=== PATIENT | male | born 1990 | race Caucasian/White ===

== ENCOUNTER 2017-08-22 18:09 | Emergency (ER) | payer OTHER ==
[2017-08-22 18:46] VITALS: BP 126/70
--- NOTE | 2017-08-22 18:55 | UC ---
Elbow Pain - HPI Summary HPI Summary: Pt presents with swelling to left elbow. 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 He has no pain, but today at lunch one of his co-workers noticed his elbow was swollen. He has a history of surgery to this elbow due to a healed fracture deformity in 2012. Denies fever, chills, or decreased ROM. - History of Current Complaint Chief Complaint: UCUpperExtremity Stated Complaint: LEFT ARM COMPL Time Seen by Provider: 08/22/17 18:54 Hx Obtained From: Patient Severity Initially: Mild Severity Currently: Mild Pain Intensity: 2 Pain Scale Used: 0-10 Numeric Character: Dull, Aching Aggravating Factor(s): Movement Alleviating Factor(s): Rest - Allergies/Home Medications Allergies/Adverse Reactions: Allergies Allergy/AdvReac Type Severity Reaction Status Date / Time No Known Allergies Allergy Verified 08/22/17 18:38 Home Medications: Home Medications Cholesterol Lowering Med 1 tab PO DAILY 08/22/17 [History Confirmed 08/22/17] PMH/Surg Hx/FS Hx/Imm Hx Previously Healthy: Yes Endocrine History: Dyslipidemia - Surgical History Surgical History: Yes Surgery Procedure, Year, and Place: several left arm fractures. left humerus with a "plate" - Family History Known Family History: Positive: Hypertension - Social History Occupation: Employed Full-time Lives: With Family Alcohol Use: Occasionally Alcohol Amount: weekends Substance Use Type: None Smoking Status (MU): Former Smoker Amount Used/How Often: 1/2 ppd Length of Time of Smoking/Using Tobacco: age 15 - age 25 Have You Smoked in the Last Year: Yes When Did the Patient Quit Smoking/Using Tobacco: 2017 Review of Systems Constitutional: Negative Skin: Negative Respiratory: Negative Cardiovascular: Negative Gastrointestinal: Negative Neurovascular: Negative Musculoskeletal: Edema - Left elbow Neurological: Negative Psychological: Negative All Other Systems Reviewed And Are Negative: Yes Physical Exam - Summary Physical Exam Summary: GENERAL: NAD. WDWN. No pain distress. SKIN: No rashes, sores, ulcers, masses, lesions. NECK: Supple. Nontender. No lymphadenopathy. CHEST: CTAB. No r/r/w. No accessory muscle use. Breathing comfortably and in no distress. CV: RRR. Without m/r/g. Pulses intact radial and ulnar. MSK: Mild TTP overly left elbow. FROM. Strength 5/5 including client partner strength. Significant edema at left elbow bursae approx 3.5cm. No warmth or sign of open wound. NEURO: Alert. Sensations intact hand and all fingers. PSYCH: Age appropriate behavior. Triage Information Reviewed: Yes Vital Signs: Initial Vital Signs Temp 98.2 F 08/22/17 18:41 Pulse 80 08/22/17 18:41 Resp 16 08/22/17 18:41 BP 126/70 08/22/17 18:41 Pulse Ox 96 08/22/17 18:41 Elbow Pain Course/Dx - Course Course Of Treatment: XR: IMPRESSION: POST SURGICAL CHANGE. SUSPECT OLECRANON BURSITIS. Suspect bursitis. Advised to rest, apply ice and compression, and take ibuprofen. F/u with ortho if symptoms not improved or continue to swell for possible drainage. - Differential Dx/Diagnosis Provider Diagnoses: OLECRANON BURSITIS left Discharge - Sign-Out/Discharge Documenting (check all that apply): Discharge - Discharge Plan Condition: Stable Disposition: HOME Patient Education Materials: Elbow Bursitis (ED) Referrals: Debbie Duffy [Primary Care Provider] - Ralph Lopez MD [Medical Doctor] - If Needed Additional Instructions: If you develop a fever, shortness of breath, chest pain, new or worsening symptoms - please call your PCP or go to the ED. 1) Rest, Ice, and apply the VIELKA wrap to your elbow. 2) Take ibuprofen 600-800mg every 6-8 hours to decrease inflammation 3) If your pain or swelling has not improved in 1 week, please call Orthopedics at the number below to schedule a follow up appointment. - Billing Disposition and Condition Condition: STABLE Disposition: HOME
--- NOTE | 2017-08-22 19:32 | RAD ---
INDICATION: Left elbow pain COMPARISON: None TECHNIQUE: AP, lateral, and oblique views were obtained. FINDINGS: There is evidence of prior open reduction internal fixation of a proximal ulnar fracture. There are no findings of hardware failure. There is prominent soft tissue swelling about the olecranon most consistent with bursitis. There are no additional significant bony or soft tissue findings IMPRESSION: POST SURGICAL CHANGE. SUSPECT OLECRANON BURSITIS
== END 2017-08-22 19:43 | disposition home or self-care (01) ==
LOC: UCCORT 18:09
DX: M70.22 Olecranon bursitis, left elbow (principal); E78.5 Hyperlipidemia, unspecified; Z87.891 Personal history of nicotine dependence
CPT/HCPCS: 99211; G0463

== ENCOUNTER 2018-05-20 19:09 | Emergency (ER) | payer SELFPAY | END 2018-05-20 20:04 | disposition left against medical advice (07) | LOC: UCCORT 19:09 | DX: Z03.89 Encounter for observation for other suspected diseases and conditions ruled out (principal); Z53.21 Procedure and treatment not carried out due to patient leaving prior to being seen by health care provider ==